=== PATIENT | male | born 1960 | race African-American/Black ===

== ENCOUNTER 2019-05-27 23:46 | Emergency (ER) | payer OTHER ==
[2019-05-28 00:32] VITALS: TEMP 97.4; BMI 31.6
--- NOTE | 2019-05-28 01:18 | PDOC ---
History of Present Illness - General Chief Complaint: Pain Stated Complaint: SWOLLEN GLANDS ON NECK Time Seen by Provider: 05/28/19 00:40 History Source: Patient Exam Limitations: No Limitations Past History - Past Medical History Allergies/Adverse Reactions: Allergies Allergy/AdvReac Type Severity Reaction Status Date / Time No Known Allergies Allergy Verified 05/28/19 00:32 Home Medications: Ambulatory Orders Cephalexin Monohydrate [Keflex -] 500 mg PO Q8H #21 capsule 05/28/19 Mupirocin Ointment [Bactroban] 1 applic TP TID #1 tube 05/28/19 COPD: No - Psycho Social/Smoking Cessation Hx Smoking History: Never smoked Have you smoked in the past 12 months: No Information on smoking cessation initiated: No Hx Alcohol Use: No Drug/Substance Use Hx: No *Physical Exam - Vital Signs Last Vital Signs Temp Pulse Resp BP Pulse Ox 97.4 F L 73 18 178/89 H 99 05/27/19 23:50 05/27/19 23:50 05/27/19 23:50 05/27/19 23:50 05/27/19 23:50 - Physical Exam General Appearance: No: Apparent Distress HEENT: positive: Pharynx Normal, Other (1x1 cm area of induration along R anterior neck, no fluctuance, nontender to touch, no surrounding erythema, + crusting around genao with some scattered areas of tiny pustules noted) Respiratory/Chest: positive: Lungs Clear, Normal Breath Sounds. negative: Respiratory Distress Cardiovascular: positive: Regular Rhythm, Regular Rate, S1, S2. negative: Murmur Neurologic: positive: Alert Medical Decision Making - Medical Decision Making 59 y/o M with hx of HTN, HLD, DM, hypothyroidism presents with bump along neck x 6 days. Mentions last week he applied hair dye along his genao and noted swelling of face 2 days later. Went to see doctor 6 days ago and was given steroids, cetirizine and pepcid. States the swelling has gone now but still with the bump along neck. Denies fever, throat pain, sob, cp, abd pain, n/v, other complaints Concerning for overlying infectious process No abscess noted currently D/W Dr. Matias - recommends course of Keflex for possible impetigo Repeat BP 175/75 Patient took his BP meds today Patient currently asymptomatic; advised f/u with his PCP for better BP control 05/28/19 01:27 Discharge - Discharge Information Problems reviewed: Yes Clinical Impression/Diagnosis: Rash Condition: Stable Disposition: HOME - Admission No - Additional Discharge Information Prescriptions: Cephalexin Monohydrate [Keflex -] 500 mg PO Q8H #21 capsule Mupirocin Ointment [Bactroban] 1 applic TP TID #1 tube Prescription Drug Monitoring Program (I-STOP) results: I-STOP not reviewed - Follow up/Referral Referrals: Dipesh Griffin MD [Primary Care Provider] - 2 Days - Patient Discharge Instructions Patient Printed Discharge Instructions: DI for Impetigo Additional Instructions: Thank you for choosing [facility]. It was a pleasure taking care of you. Take the antibiotics as prescribed You may also use the Bactroban ointment as prescribed Be sure to follow-up with your regular doctor in 2 days for reevaluation of the rash. Also follow-up with your doctor regarding better blood pressure control Return to the Emergency Department if your symptoms worsen or persist, you have fever, worsening of rash or other concerning symptoms. - Post Discharge Activity
[2019-05-28] MEDS ORDERED: CEPHALEXIN MONOHYDRATE 500 MG CAPSULE (UD) PO ONE (01:26)
[2019-05-28 01:30] VITALS: BP 175/75; PULSE 69
[2019-05-28] MEDS ORDERED: CEPHALEXIN MONOHYDRATE 500 MG CAPSULE (UD) ONE (01:32)
== END 2019-05-28 01:40 | disposition home or self-care (01) ==
LOC: JER 23:46
DX: R21 Rash and other nonspecific skin eruption (principal); I10 Essential (primary) hypertension; E78.5 Hyperlipidemia, unspecified; E03.9 Hypothyroidism, unspecified; E11.9 Type 2 diabetes mellitus without complications
CPT/HCPCS: 99283-25